=== PATIENT | male | born 1960 | race Caucasian/White ===

== ENCOUNTER 2022-11-24 11:49 | Outpatient (CLI) | payer OTHER ==
[2022-11-24 13:32] LABS: Hemoglobin 15.1 g/dL (13.5-17.5); Mean Corpuscular HGB CONC 35.7 g/dL (32.0-36.0); Mean Corpuscular Volume 92.4 fl (81.2-95.1); Mean Platelet Volume 10.5 fl (7.4-10.4); Platelet Count 247 10x3/uL (150-450); Red Blood Cell (RBC) Count 4.58 10x6/uL (4.32-5.72); White Blood Cell (WBC) Count 7.9 10x3/uL (3.5-10.5)
[2022-11-24 13:49] LABS: Anion Gap 15 mmol/L (10-20); BUN (Urea Nitrogen) 9 mg/dL (8.4-25.7); Calc. Creatinine Clearance 0 mL/min (70-130); Calcium 9.5 mg/dL (7.8-10.44); Carbon Dioxide 23 mmol/L (23-31); Chloride 99 mmol/L (98-107); Estimated GFR 102; Glucose 87 mg/dL (80-115); Potassium 4.2 mmol/L (3.5-5.1); Sodium 133 mmol/L (136-145)
== END 2022-11-24 11:50 | disposition home or self-care (01) ==
LOC: CSHLAB 11:49
PROVIDERS: ATTEND Orthopaedic Surgery
DX: Z01.818 Encounter for other preprocedural examination (principal); S83.282A Other tear of lateral meniscus, current injury, left knee, initial encounter; S83.242A Other tear of medial meniscus, current injury, left knee, initial encounter; M67.52 Plica syndrome, left knee
CPT/HCPCS: 80048; 85027; 93005; 93010

== ENCOUNTER 2022-11-27 05:48 | Day surgery (SDC) | payer OTHER ==
[2022-11-24 12:09] VITALS: BMI 26.9
[2022-11-27] MEDS ORDERED: Dexamethasone 4 mg/ml Vial ONE (06:41)
[2022-11-27] MEDS ORDERED: Bupivacaine HCl 0.5%/Epinephrine 1:200,000/PF 30 ml Vial ONE (06:42)
[2022-11-27] MEDS ORDERED: CEFAZOLIN 2 GM VIAL ONE (06:56)
[2022-11-27] MEDS ORDERED: Succinylcholine 200 MG/10 ml SYRINGE FS ONE (07:14)
[2022-11-27] MEDS ORDERED: PROPOFOL 20 ML ONE (07:14)
[2022-11-27] MEDS ORDERED: Fentanyl 100 MCG/2 ML VIAL ONE ×2 (07:14→08:51)
[2022-11-27] MEDS ORDERED: Lidocaine 1% PF 5 ML VIAL ONE (07:14)
[2022-11-27] MEDS ORDERED: Dexamethasone 20 MG/5 ML VIAL ONE (07:42)
[2022-11-27] MEDS ORDERED: Ondansetron PF 4 MG/2 ML Vial ONE (08:13)
[2022-11-27] MEDS ORDERED: Ketorolac Tromethamine 30 MG/ML VIAL ONE (08:39)
[2022-11-27] MEDS ORDERED: HYDROcodone/Acetaminophen 5/325 mg Tablet ONE (09:17)
== END 2022-11-27 09:45 | disposition home or self-care (01) ==
LOC: CSHSDC 05:48
PROVIDERS: ATTEND Orthopaedic Surgery
PROC: 0SBD4ZZ Excision of Left Knee Joint, Percutaneous Endoscopic Approach (ICD-10-PCS; principal; 2022-11-27)
PROC: 0SCD4ZZ Extirpation of Matter from Left Knee Joint, Percutaneous Endoscopic Approach (ICD-10-PCS; principal; 2022-11-27)
DX: S83.232A Complex tear of medial meniscus, current injury, left knee, initial encounter (principal); S83.272A Complex tear of lateral meniscus, current injury, left knee, initial encounter; M67.52 Plica syndrome, left knee; K21.9 Gastro-esophageal reflux disease without esophagitis; I10 Essential (primary) hypertension; Z79.899 Other long term (current) drug therapy; X58.XXXA Exposure to other specified factors, initial encounter
CPT/HCPCS: J1100; J1885; J2405; J2704; J3010